=== PATIENT | female | born 1940 | race Caucasian/White ===

== ENCOUNTER 2022-01-08 20:51 | Observation (INO) | payer MEDICARE, SELFPAY ==
[2022-01-08 21:09] VITALS: BP 96/55; PULSE 87; RESP 18; TEMP 36.7; O2SAT 99; BMI 42.0
--- NOTE | 2022-01-08 21:09 | W.ED.GENADLT ---
HPI - General Adult General: Chief complaint: Weakness Stated complaint: NOT FEELING WELL Time Seen by Provider: 01/08/22 21:09 History of Present Illness: Ms. Hart is an 81-year-old lady with significant history of CHF (unsure of ejection fraction) presenting to the emergency department due to lightheadedness and hypotension. She describes onset of symptoms this morning without known specific provoking factor. Initially was mild with just a brain fog type feeling however is now increased to presyncope. She additionally endorses some difficulty with speech associated with this however this is improved as her blood pressure improved. EMS found the patient to have systolic blood pressure approximately 70. Denies infectious symptoms. Reports normal p.o. intake. She is on fluid restriction. Intensity symptoms is moderate to severe. Course has improved. No other specific changes in health, exacerbating, or alleviating factors identified. Onset (ago): hour(s) Severity: moderate Relieving factors: none Exacerbating factors: other Associated symptoms: Reports confusion and other Review of Systems General: Reports: 10 or more systems reviewed and unremarkable except in HPI and below Neuro: Reports: confusion [facility] PFSH: Medical History Atrial fibrillation CAD (coronary artery disease) CHF (congestive heart failure) Hypertension Physical Exam Const: COMMON NORMALS: alert GENERAL APPEARANCE: cooperative and well developed HENMT: COMMON NORMALS: normocephalic and atraumatic HEAD & SCALP: normocephalic and atraumatic Eye: COMMON NORMALS: conjunctivae normal CONJUNCTIVA: Yes conjunctivae normal SCLERA: sclerae normal Neck/C-Spine: COMMON NORMALS: supple GENERAL: Yes trachea midline Resp: COMMON NORMALS: clear to auscultation bilaterally EFFORT & INSPECTION: Yes able to speak in complete sentences AUSCULTATION: clear to auscultation bilaterally Cardio: COMMON NORMALS: regular rate and regular rhythm RATE: regular rate RHYTHM: regular rhythm GI: COMMON NORMALS: Soft to palpation PALPATION: Yes Soft to palpation and No Tenderness to palpation present (GI) PERCUSSION: normal to percussion Extremity: GENERAL: Yes normal exam except as noted and No edema Neuro: COMMON NORMALS: moves all extremities SENSORIUM/ORIENTATION: Yes alert and No Orientation impaired Psych: COMMON NORMALS: mental status grossly normal and Normal thought process present THOUGHT PROCESS: Normal thought process present Course Vital Signs: Vital signs: Vital Signs Temperature 97.6 F 01/09/22 08:00 Pulse Rate 72 01/09/22 12:35 Respiratory Rate 16 01/09/22 08:00 Blood Pressure 119/75 01/09/22 08:00 Pulse Oximetry 95 01/09/22 12:35 Oxygen Delivery Me thod 01/09/22 08:48 Oxygen Flow Rate 2 01/09/22 08:48 MDM - General Adult Medical Decision Making 81-year-old lady with complex history and limited available information presenting with hypotension and near syncope. EKG notable for atrial fibrillation with nonspecific ST segment abnormalities. No STEMI. Laboratory studies notable for mild leukocytosis, normal hemoglobin. Metabolic panel with hypomagnesemia, replenishment ordered. Negative delta troponin. BNP is elevated. No UTI. Viral studies negative. Head CT negative for acute intracranial pathology. Chest x-ray with evidence of pulmonary edema. Upon reassessment blood pressure mildly proved however patient presents next clinical picture of likely intra vascular volume depletion and distal volume overload. Reasonable to admit the patient for further observation given documented significant hypotension and symptomatic hypotension and history. The results of ED evaluation were discussed with the patient including plan for admission due to requirement for level of care not available if discharged to prevent significant worsening/deterioration. Patient agreeable with plan. Hospitalist service contacted and agreed to admit the patient. Medical Records I reviewed the patient's medical records. Lab Data I reviewed the patient's lab results. : 01/08/22 21:10 01/08/22 21:10 Radiology Impressions Chest X-Ray 01/08/22 21:10 IMPRESSION: Suggestion of mild pulmonary edema. Atypical infection can give a similar appearance. No consolidation. Suspected small pleural effusions. No large pleural effusion. No pneumothorax. Head CT 01/08/22 21:21 IMPRESSION: No evidence of acute intracranial hemorrhage, mass effect, or midline shift. Laboratory Results WBC 13.4 10^3/uL (4.0-10.0) H 01/08/22 21:10 RBC 3.86 10^6/uL (4.1-5.3) L 01/08/22 21:10 Hgb 11.9 g/dL (11.5-15.3) 01/08/22 21:10 Hct 37.3 % (37.0-47.0) 01/08/22 21:10 MCV 96.6 fl (81-99) 01/08/22 21:10 MCH 30.8 pg (28.0-34.0) 01/08/22 21:10 MCHC 31.9 g/dL (30.0-36.0) 01/08/22 21:10 RDW 14.5 % (12.1-15.1) 01/08/22 21:10 Plt Count 406 10^3/cmm (130-400) H 01/08/22 21:10 MPV 10.3 fL (7.4-10.4) 01/08/22 21:10 Neut % (Auto) 62.8 % 01/08/22 21:10 Lymph % (Auto) 25.8 % 01/08/22 21:10 [place] % (Auto) 8.1 % 01/08/22 21:10 Eos % (Auto) 2.0 % 01/08/22 21:10 Baso % (Auto) 0.6 % 01/08/22 21:10 Neut # (Auto) 8.41 10^3/uL (1.8-7.7) H 01/08/22 21:10 Lymph # (Auto) 3.5 10^3/uL (0.8-4.8) 01/08/22 21:10 [place] # (Auto) 1.1 10^3/uL (0.2-0.9) H 01/08/22 21:10 Eos # (Auto) 0.3 10^3/uL (0.0-0.8) 01/08/22 21:10 Baso # (Auto) 0.1 10^3/uL (0.0-0.1) 01/08/22 21:10 Nucleated RBC % (auto) 0 % 01/08/22 21:10 Nucleated RBCs # 0.0 /100WBC 01/08/22 21:10 Sodium 135 mmol/L (136-145) L 01/08/22 21:10 Potassium 4.0 mmol/L (3.5-5.1) 01/08/22 21:10 Chloride 101 mmol/L (98-107) 01/08/22 21:10 Carbon Dioxide 22 mmol/L (22-29) 01/08/22 21:10 Anion Gap 16.0 (5-19) 01/08/22 21:10 BUN 16 mg/dL (8-23) 01/08/22 21:10 Creatinine 0.9 mg/dL (0.5-0.9) 01/08/22 21:10 GFR Calculation Not Reportable 01/08/22 21:10 Glucose 120 mg/dL (65-115) H 01/08/22 21:10 Calculated Osmolality 282 mOsm/kg (285-295) L 01/08/22 21:10 Lactic Acid 2.0 mmol/L (0.5-2.2) 01/08/22 22:55 Calcium 9.7 mg/dL (8.5-10.5) 01/08/22 21:10 Magnesium 1.5 mg/dL (1.7-2.3) L 01/08/22 21:10 Total Bilirubin 0.5 mg/dL (0.15-1.2) 01/08/22 21:10 AST 25 U/L (0-32) 01/08/22 21:10 ALT 17 U/L (0-33) 01/08/22 21:10 Alkaline Phosphatase 73 U/L (35-105) 01/08/22 21:10 Troponin T Baseline 36 ng/L (0-10) H 01/08/22 21:10 Troponin T 120 Minute 33.02 ng/L (0-10) H 01/08/22 22:58 Delta Troponin T -2.98 ABS# (0-10) L 01/08/22 22:58 C-Reactive Protein 19.5 mg/L (0.0-4.9) H 01/08/22 21:10 NT-Pro-B Natriuret Pep 1162 pg/mL (0-450) H 01/08/22 21:10 Total Protein 6.6 g/dL (6.6-8.7) 01/08/22 21:10 Albumin 3.4 g/dL (3.5-5.2) L 01/08/22 21:10 Globulin 3.2 g/dL (1.3-4.6) 01/08/22 21:10 Procalcitonin 0.07 ng/mL (0-0.5) 01/08/22 21:10 TSH 0.25 uIU/mL (0.27-4.20) L 01/08/22 21:10 Free T4 1.53 ng/dL (0.82-1.77) 01/08/22 21:10 Urine Color Yellow (Yellow) 01/08/22 22:24 Urine Appearance Clear (CLEAR) 01/08/22 22:24 Urine pH 7 (5-7) 01/08/22 22:24 Ur Specific [place] 1.010 (1.005-1.030) 01/08/22 22:24 Urine Protein Neg (Negative) 01/08/22 22:24 Urine Glucose (UA) Norm (Normal) 01/08/22 22:24 Urine Ketones Negative (Negative) 01/08/22 22:24 Urine Blood Neg (Negative) 01/08/22 22:24 Urine Nitrate Negative (Negative) 01/08/22 22:24 Urine Bilirubin Neg (Negative) 01/08/22 22:24 Urine Urobilinogen Neg mg/dL (Negative) 01/08/22 22:24 Ur Leukocyte Esterase Negative (Negative) 01/08/22 22:24 Coronavirus 229E (PCR) Not detected (NOT DETECT) 01/08/22 22:20 SARS-CoV-2 (PCR) Not detected (NOT DETECT) 01/08/22 22:20 Discharge Plan Discharge Patient Disposition: Placed in Observation Admit Provider: Kraen Su Clinical Impression: Acute exacerbation of CHF (congestive heart failure), Pulmonary edema, Hypoxia Discharge Diet: Cardiac Discharge Activity: Increase activity as tolerated Coding Level of Care Code ED Track Laborer for Chg Fwd Exam Comprehensive
--- NOTE | 2022-01-08 21:10 | XRR_ITS ---
PROCEDURE INFORMATION: Exam: XR Chest Exam date and time: 01/08/2022 9:57 PM Age: 81 years old Clinical indication: Other: Hypotensive; Additional info: Hypotension TECHNIQUE: Imaging protocol: Radiologic exam of the chest. Views: 1 view. COMPARISON: No relevant prior studies available. FINDINGS: Lungs: Low lung volumes and bronchovascular crowding. Slight increased pulmonary vascularity. Increased interstitial markings. Pleural spaces: The costophrenic angles are obscured suspecting small pleural effusions, more prominent on the right. No pneumothorax. Heart/Mediastinum: The cardiomediastinal silhouette is enlarged. Bones/joints: There are degenerative changes of the spine and shoulder joints. XR/XR chest 1V portable [id number] IMPRESSION: Suggestion of mild pulmonary edema. Atypical infection can give a similar appearance. No consolidation. Suspected small pleural effusions. No large pleural effusion. No pneumothorax.
--- NOTE | 2022-01-08 21:10 | ECG_ITS ---
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 Measurements Intervals [place] Rate: 78 P: IN: QRS: -41 QRSD: 90 T: 31 QT: 390 QTc: 445 Interpretive Statements ATRIAL FIBRILLATION LEFT AXIS DEVIATION [QRS AXIS < -30] No previous ECG available for comparison Electronically Signed On 01-10-2022 22:59:23 CDT by Tiff Wolf M.D. [id number]
[2022-01-08 21:21] LABS: Basophils # 0.1 10^3/uL (0.0-0.1); Basophils % 0.6 %; Eosinophils # 0.3 10^3/uL (0.0-0.8); Hematocrit 37.3 % (37.0-47.0); Hemoglobin 11.9 g/dL (11.5-15.3); Lymphocytes # 3.5 10^3/uL (0.8-4.8); Lymphocytes % 25.8 %; Mean Corpuscular HGB Conc 31.9 g/dL (30.0-36.0); Mean Corpuscular Hemoglobin 30.8 pg (28.0-34.0); Mean Corpuscular Volume 96.6 fl (81-99); Mean Platelet Volume 10.3 fL (7.4-10.4); Monocytes # 1.1 10^3/uL (0.2-0.9); Monocytes % 8.1 %; Neutrophils # 8.41 10^3/uL (1.8-7.7); Neutrophils % 62.8 %; Nucleated Red Blood Cells % 0 %; Platelet Count 406 10^3/cmm (130-400); Red Blood Count 3.86 10^6/uL (4.1-5.3); Red Cell Distribution Width 14.5 % (12.1-15.1); White Blood Count 13.4 10^3/uL (4.0-10.0)
--- NOTE | 2022-01-08 21:21 | CTR_ITS ---
PROCEDURE INFORMATION: Exam: CT Head Without Contrast Exam date and time: 01/08/2022 9:43 PM Age: 81 years old Clinical indication: Other: Lightheadedness TECHNIQUE: Imaging protocol: Computed tomography of the head without contrast. Radiation optimization: All CT scans at this facility use at least one of these dose optimization techniques: automated exposure control; mA and/or kV adjustment per patient size (includes targeted exams where dose is matched to clinical indication); or iterative reconstruction. COMPARISON: No relevant prior studies available. RADIATION DOSE METRICS: Total DLP (mGy-cm): 1002.18 FINDINGS: Brain: No evidence of acute intracranial hemorrhage. The lopes-white matter differentiation is maintained. Periventricular and subcortical hypoattenuation are nonspecific however likely the sequela of chronic small vessel ischemic disease. No significant mass effect or midline shift. Cerebral ventricles: Mild cerebral and cerebellar volume loss and ex vacuo dilation of the ventricles. Pituitary gland and sella: There is a partial empty sella. Paranasal sinuses: Mild paranasal sinus disease. Mastoid air cells: The imaged mastoid air cells appear grossly clear. Orbital cavities: No evidence of acute CT findings in the orbits. Bones/joints: Unremarkable. No acute fracture. Soft tissues: Unremarkable. Vasculature: There are atherosclerotic calcifications of the carotid siphons and the V4 segments of the vertebral arteries, more on the left side. CT/CT head wo con* [id number] IMPRESSION: No evidence of acute intracranial hemorrhage, mass effect, or midline shift.
[2022-01-08 21:47] LABS: Troponin(5th) Baseline 36 ng/L (0-10)
[2022-01-08 21:54] LABS: NT Pro B Type Natriuretic Pept 1162 pg/mL (0-450); Procalcitonin 0.07 ng/mL (0-0.5); Thyroid Stimulating Hormone 0.25 uIU/mL (0.27-4.20)
[2022-01-08 22:03] VITALS: BP 107/84; PULSE 85; RESP 25; O2SAT 100
[2022-01-08 22:05] LABS: Albumin Level 3.4 g/dL (3.5-5.2); Alkaline Phosphatase 73 U/L (35-105); Blood Urea Nitrogen 16 mg/dL (8-23); C Reactive Protein 19.5 mg/L (0.0-4.9); Calcium 9.7 mg/dL (8.5-10.5); Carbon Dioxide 22 mmol/L (22-29); Chloride 101 mmol/L (98-107); Globulin 3.2 g/dL (1.3-4.6); Glucose 120 mg/dL (65-115); Magnesium 1.5 mg/dL (1.7-2.3); Osmolality Calculated 282 mOsm/kg (285-295); Sodium 135 mmol/L (136-145); Total Bilirubin 0.5 mg/dL (0.15-1.2); Total Protein 6.6 g/dL (6.6-8.7)
[2022-01-08 22:15] VITALS: BP 107/71; PULSE 75; RESP 23; O2SAT 99
[2022-01-08 22:24] LABS: Alanine Aminotransferase 17 U/L (0-33)
[2022-01-08 22:29] LABS: Aspartate Amino Transferase 25 U/L (0-32)
--- NOTE | 2022-01-08 22:30 | P.HP_ITS ---
Providers/Chief Complaint Admitting Physician: Karen Su MD Chief Complaint: NOT FEELING WELL History of Present Illness Kim Hart is a 81 year old female with a past medical history of coronary artery disease, last cardiac stenting in December 2020, A. fib on warfarin, last INR 2.41-week ago, CHF, takes Lasix 20 mg p.o. every day, hypertension on several blood pressure medications, however the list of her medications is not currently available for review. Patient presented to the emergency room with a generalized feeling of being unwell. She stated feeling lightheaded at around 7 PM last evening. She was sitting in a chair when the symptoms started. She did not pass out. She estimates that symptoms lasted about 2 to 3 minutes. She has a past history of stroke in the from which she had some residual left-sided facial droop. She did not have any focal neurodeficits. No history of seizures. No recent history of bleeding at any site. Hemoglobin is stable today at 11.9. She denies any complaints of chest pain dyspnea or palpitations prior to onset of this episode. She was not hypoglycemic at the time. Her brother called EMS, upon arrival they found her systolic blood pressure to be 70. Upon presentation to the ER her blood pressure continued to be soft in the 80-90 systolic range, she received 1 L IV fluid bolus after which blood pressure is 120/81 at the time of my assessment. She denies any recent changes in her medications. She is quite fixated on the fact that her symptoms are related to change in her medical marijuana. She is visiting here from [place] and was on a different preparation in [place]. Recently 1 week ago she got some CBD Gummies which she states did not work as well as the medical marijuana and states that her symptoms are related to this. Review of systems negative for chest pain dyspnea palpitation syncope abdominal pain nausea vomiting diarrhea fever or chills. Review of Systems General: Reports: 10 or more systems reviewed and unremarkable except in HPI and below Const: Denies: fever(s), chills or body aches Eyes: Denies: change in vision, blurry vision or photophobia ENMT: Reports: hoarseness; Denies: throat pain, enlarged tonsils, odynophagia or nasal congestion Card: Denies: chest pain, palpitations, irregular heart rhythm, edema, swelling of feet/ankles, lightheadedness, pre-syncope, dyspnea on exertion or orthopnea Resp: Denies: dyspnea, productive cough, non-productive cough, wheezing, stridor, pain on inspiration, change in phlegm color, hemoptysis or chest congestion GI: Denies: abdominal pain, nausea, vomiting, hematemesis, coffee ground emesis, dysphagia, heartburn, diarrhea, constipation, GI cramping, change in stool character, hematochezia or melena : Denies: flank pain, difficulty voiding, dysuria, urinary frequency, urinary urgency, urinary hesitancy or hematuria Musc: Denies: neck pain, back pain, extremity pain, joint swelling, joint warmth or deformity Neuro: Denies: headache(s), numbness in extremities, weakness in extremities, sensory changes, difficulty walking, frequent falls, dizziness, vertigo, behavioral changes, Slurred speech present or seizure-like activity Psych: Denies: anxiety, depression, suicidal ideation or homicidal ideation Endo: Denies: polyuria, polydipsia, tired all the time, cold intolerance or hot flashes Matias/Lymph: Denies: easy bruising or easy bleeding Medications/Allergies Allergies Allergy/AdvReac Type Severity Reaction Status Date / Time No Known Allergies Allergy Verified 01/09/22 04:10 PFSH Acute PFSH: Medical History Atrial fibrillation CAD (coronary artery disease) CHF (congestive heart failure) Hypertension Vitals/I&O/Wt Last Vital Signs Temp 98.0 F 01/08/22 21:09 Pulse 75 01/09/22 01:19 Resp 23 H 01/09/22 01:19 BP 107/71 01/09/22 01:19 Pulse Ox 99 01/09/22 01:19 O2 Del Method 01/09/22 02:00 01/08/22 01/09/22 01/09/22 22:59 06:59 14:59 Intake Total 290 / 290 Balance 290 / 290 Weight last 48 hrs Weight 98.248 kg Weight 94.347 kg Physical Exam Narrative: General: No acute distress, AO x3 HEENT: PERRLA, pupils bilaterally equal and reactive, pallors not present Chest: Normal vesicular breath sounds, no added sounds, equal good air entry bilaterally CVS: S1-S2 regular, no murmurs, no tachycardia, no gallops, no rubs Abdomen: Soft, nontender, no organomegaly, bowel sounds present Neuro: No focal deficits, no facial deformity, AO x3, power 5/5 in all limbs Extremities: No edema clubbing or cyanosis Data : 01/08/22 21:10 01/08/22 21:10 Micro: Microbiology 01/08/22 22:55 Blood Culture - Preliminary Blood SPECIMEN COLLECTED 01/08/22 22:58 Blood Culture - Preliminary Blood SPECIMEN COLLECTED A&P Assessment and plan (1) Lightheadedness: (2) Hypoxia: (3) Elevated troponin: Plan Patient presenting to the emergency room today with chief complaints of ligh theadedness which was brought on quite suddenly. She did not lose consciousness. No preceding symptoms of chest pain dyspnea palpitations or syncope. She has no current neurological deficits. Low probability of CVA versus TIA CT head without evidence of acute intracranial hemorrhage mass-effect or midline shift. Sequelae of old small vessel ischemic disease correlating with patient's history of CVA. Upon EMS arrival reported blood pressure was 70 systolic, thereafter in the emergency room also noted to be between 80-90 range. After receiving 1 L of IV fluid bolus this is improved. At the time of my assessment blood pressure is ranging between 100-1 20 systolic. Patient does not feel any symptoms anymore. Will check orthostatics EKG without any acute ST-T wave changes. Noted to have A. fib with heart rate of 71 bpm. Mildly elevated troponin at 31 pending 2 and 6-hour trend. She is noted to have a new oxygen requirement of 2 L/min with chest x-ray showing bilateral infiltrates, however clinically she is appearing to be euvolemic. She states that she sleeps upright in a chair for many years, unknown if she has a history of DOMENIC or if this is more from CHF. Patient states that last week she was noted to have low oxygen numbers at her PCPs visit, however they performed a walk test and patient did not qualify for supplemental oxygen. We will perform a home O2 evaluation today prior to discharge. Overall patient symptoms appear related to her transient hypotensive episode, though I am uncertain as to what caused her hypotension in the first place. She does not describe any volume loss by way of diarrhea nausea or vomiting. She takes Lasix 20 mg daily, has been stable over several years. She denies any recent changes in her diuretic dosing. Her drug list is not available for me to review to assess her other antihypertensive and diuretic regimen. Once this is available, we will assess if any further dose adjustments can be made. Attestations Medical Necessity Statement*: Observation admission, for troponin trend, orthostatic blood pressure check, home O2 eval, anticipate discharge in the upcoming 24 hours Coding Level of Care Code Acute Match Up Person for [facility] Fwd Diagnoses Lightheadedness R42 Hypoxia R09.02 Elevated troponin R77.8
[2022-01-08 22:33] LABS: Add Urine Microscopic? NO; Charge for UA Resulting for Rev
[2022-01-08 22:34] LABS: Bilirubin Urine Neg (Negative); Blood Urine Neg (Negative); Glucose Urine UA Norm (Normal); Ketones Urine Negative (Negative); Leukocyte Esterase Urine Negative (Negative); Nitrate Urine Negative (Negative); Protein Urine Neg (Negative); Urine Appearance Clear (CLEAR); Urine Color Yellow (Yellow); Urobilinogen Urine Neg (Negative); pH Urine 7 (5-7)
[2022-01-08 22:35] LABS: Free T4 Free Thyroxine 1.53 ng/dL (0.82-1.77)
[2022-01-08 22:37] VITALS: BP 120/81; BP 124/86; BP 138/74; PULSE 105; PULSE 80; PULSE 90
[2022-01-08] MEDS: magnesium sulfate premix 2 GM/50 ML PIGGYBACK IV (22:47)
--- NOTE | 2022-01-08 23:10 | ECG_ITS ---
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 Measurements Intervals [place] Rate: 71 P: [place]: QRS: -32 QRSD: 90 T: 14 QT: 384 QTc: 419 Interpretive Statements ATRIAL FIBRILLATION LEFT AXIS DEVIATION [QRS AXIS < -30] POSSIBLE RIGHT VENTRICULAR CONDUCTION DELAY [RSR (QR) IN V1/V2] NONSPECIFIC T-WAVE ABNORMALITY No previous ECG available for comparison Electronically Signed On 01-10-2022 23:12:33 CDT by Tiff Wolf M.D. [id number]
[2022-01-08 23:38] LABS: Troponin 5 2HR 33.02 ng/L (0-10)
[2022-01-08 23:44] LABS: Troponin 5 2HR Delta -2.98 ABS# (0-10)
[2022-01-09 00:18] LABS: Adenovirus Not Detected (NOT DETECT); Chlamydia Pneumoniae Not Detected (NOT DETECT); Coronavirus 229E,HKU1,NL63,OC4 Not Detected (NOT DETECT); Human Metapneumovirus Not Detected (NOT DETECT); Human Rhinovirus/Enterovirus Not Detected (NOT DETECT); Influenza A Not Detected (NOT DETECT); Influenza A H1 Not Detected (NOT DETECT); Influenza A H1-2009 Not Detected (NOT DETECT); Influenza A H3 Not Detected (NOT DETECT); Influenza B Not Detected (NOT DETECT); Mycoplasma Pneumoniae Not Detected (NOT DETECT); Parainfluenza Virus Type 1 Not Detected (NOT DETECT); Parainfluenza Virus Type 2 Not Detected (NOT DETECT); Parainfluenza Virus Type 3 Not Detected (NOT DETECT); Parainfluenza Virus Type 4 Not Detected (NOT DETECT); Respiratory Syncytial Virus A Not Detected (NOT DETECT); Respiratory Syncytial Virus B Not Detected (NOT DETECT); SARS-COV-2 Not Detected (NOT DETECT)
[2022-01-09 01:19] VITALS: BP 107/71; PULSE 75; RESP 23; O2SAT 99
[2022-01-09 05:08] LABS: Troponin 5 6HR 35.13 ng/L (0-10)
[2022-01-09 05:09] LABS: Troponin 5 6HR Delta -0.87 ng/L (0-12)
--- NOTE | 2022-01-09 07:10 | PC.NURSE ---
Bedside report completed with BUSHRA Majano
[2022-01-09 08:00] VITALS: BP 119/75; PULSE 57; RESP 16; TEMP 36.4; O2SAT 99
[2022-01-09 08:48] VITALS: PULSE 72; O2SAT 95
[2022-01-09 08:49] VITALS: O2SAT 95; O2SAT 99
[2022-01-09] MEDS: pantoprazole DR 40 mg Tablet PO (09:08)
[2022-01-09 09:09] LABS: INR 1.91 (0.8-1.2)
--- NOTE | 2022-01-09 09:10 | PM.DCS ---
Discharge Providers Date of Admission: 01/09/22 00:00 Date of Discharge: January 09, 2022 Attending Provider at Admission: Karen Su MD Attending Provider at Discharge: Patricia Chow MD Diagnoses at Discharge Discharge Diagnosis (1) Lightheadedness: Status: Acute (2) Hypoxia: Status: Acute (3) Elevated troponin: Status: Acute Reason for Visit Reason for Visit: NOT FEELING WELL Hospital Course Hospital Course 82-year-old female who was admitted for management of lightheadedness, dizziness, she was diagnosed with dehydration related hypotension improved significantly with IV fluid hydration. Patient is awake and alert at the time of discharge, nonfocal neuro exam No signs of dizziness, she is able to walk using a walker She does have chronic back pain for which she is medical marijuana. She does have a murmur on clinical exam stating that she has an echo which has been ordered for her back in [place] she would like to get echo there instead of in the hospital while she is admitted. She is motivated and eager to return home. Her blood pressure has stabilized, I did make her walk in the room, there was no dizziness Orthostasis negative. Patient is stating that she has history of A. fib and takes Eliquis along with her medications. She does not want us to change anything medication and wanted to go back to [place] to follow-up with her PCP. Patient is stating that she has been taking medications for years and she has not changed anything and she would like to keep things the way they are and not willing to change any of her pills for today Her oxygen requirement is , Chest x-ray consistent with mild pulm edema, she will continue her Lasix 20 mg daily, will do home O2 evaluation before discharge Physical Exam Narrative: Variable S1-S2 No signs of RVR Clinically looks euvolemic Blood pressure 119/75-minute edwar Nonfocal neuro exam Able to walk using walker No signs of stroke Pleasant and cooperative during my evaluation Discharge Data Studies Completed and Pending Completed Studies During Hospitalization Category Date Time Status CT head wo con* [id number] Stat Cat Scan 01/08/22 21:21 Completed XR chest 1V portable [id number] Stat Exams 01/08/22 21:10 Completed Pending at discharge Category Date Time Status Blood Culture Stat Lab 01/08/22 22:55 Results Radiology Impressions Chest X-Ray 01/08/22 21:10 IMPRESSION: Suggestion of mild pulmonary edema. Atypical infection can give a similar appearance. No consolidation. Suspected small pleural effusions. No large pleural effusion. No pneumothorax. Head CT 01/08/22 21:21 IMPRESSION: No evidence of acute intracranial hemorrhage, mass effect, or midline shift. Laboratory Results WBC 13.4 10^3/uL (4.0-10.0) H 01/08/22 21:10 RBC 3.86 10^6/uL (4.1-5.3) L 01/08/22 21:10 Hgb 11.9 g/dL (11.5-15.3) 01/08/22 21:10 Hct 37.3 % (37.0-47.0) 01/08/22 21:10 MCV 96.6 fl (81-99) 01/08/22 21:10 MCH 30.8 pg (28.0-34.0) 01/08/22 21:10 MCHC 31.9 g/dL (30.0-36.0) 01/08/22 21:10 RDW 14.5 % (12.1-15.1) 01/08/22 21:10 Plt Count 406 10^3/cmm (130-400) H 01/08/22 21:10 MPV 10.3 fL (7.4-10.4) 01/08/22 21:10 Neut % (Auto) 62.8 % 01/08/22 21:10 Lymph % (Auto) 25.8 % 01/08/22 21:10 [place] % (Auto) 8.1 % 01/08/22 21:10 Eos % (Auto) 2.0 % 01/08/22 21:10 Baso % (Auto) 0.6 % 01/08/22 21:10 Neut # (Auto) 8.41 10^3/uL (1.8-7.7) H 01/08/22 21:10 Lymph # (Auto) 3.5 10^3/uL (0.8-4.8) 01/08/22 21:10 [place] # (Auto) 1.1 10^3/uL (0.2-0.9) H 01/08/22 21:10 Eos # (Auto) 0.3 10^3/uL (0.0-0.8) 01/08/22 21:10 Baso # (Auto) 0.1 10^3/uL (0.0-0.1) 01/08/22 21:10 Nucleated RBC % (auto) 0 % 01/08/22 21:10 Nucleated RBCs # 0.0 /100WBC 01/08/22 21:10 PT 22.20 SECONDS (12.1-14.9) H 01/09/22 08:27 INR 1.91 (0.8-1.2) H 01/09/22 08:27 Sodium 135 mmol/L (136-145) L 01/08/22 21:10 Potassium 4.0 mmol/L (3.5-5.1) 01/08/22 21:10 Chloride 101 mmol/L (98-107) 01/08/22 21:10 Carbon Dioxide 22 mmol/L (22-29) 01/08/22 21:10 Anion Gap 16.0 (5-19) 01/08/22 21:10 BUN 16 mg/dL (8-23) 01/08/22 21:10 Creatinine 0.9 mg/dL (0.5-0.9) 01/08/22 21:10 GFR Calculation Not Reportable 01/08/22 21:10 Glucose 120 mg/dL (65-115) H 01/08/22 21:10 Calculated Osmolality 282 mOsm/kg (285-295) L 01/08/22 21:10 Lactic Acid 2.0 mmol/L (0.5-2.2) 01/08/22 22:55 Calcium 9.7 mg/dL (8.5-10.5) 01/08/22 21:10 Magnesium 1.5 mg/dL (1.7-2.3) L 01/08/22 21:10 Total Bilirubin 0.5 mg/dL (0.15-1.2) 01/08/22 21:10 AST 25 U/L (0-32) 01/08/22 21:10 ALT 17 U/L (0-33) 01/08/22 21:10 Alkaline Phosphatase 73 U/L (35-105) 01/08/22 21:10 Troponin T Baseline 36 ng/L (0-10) H 01/08/22 21:10 Troponin T 120 Minute 33.02 ng/L (0-10) H 01/08/22 22:58 Delta Troponin T -2.98 ABS# (0-10) L 01/08/22 22:58 Troponin T Hi Sens 6Hr 35.13 ng/L (0-10) H 01/09/22 03:45 Troponin T Hi Sens 6Hr Delta -0.87 ng/L (0-12) L 01/09/22 03:45 C-Reactive Protein 19.5 mg/L (0.0-4.9) H 01/08/22 21:10 NT-Pro-B Natriuret Pep 1162 pg/mL (0-450) H 01/08/22 21:10 Total Protein 6.6 g/dL (6.6-8.7) 01/08/22 21:10 Albumin 3.4 g/dL (3.5-5.2) L 01/08/22 21:10 Globulin 3.2 g/dL (1.3-4.6) 01/08/22 21:10 Procalcitonin 0.07 ng/mL (0-0.5) 01/08/22 21:10 TSH 0.25 uIU/mL (0.27-4.20) L 01/08/22 21:10 Free T4 1.53 ng/dL (0.82-1.77) 01/08/22 21:10 Urine Color Yellow (Yellow) 01/08/22 22:24 Urine Appearance Clear (CLEAR) 01/08/22 22:24 Urine pH 7 (5-7) 01/08/22 22:24 Ur Specific [place] 1.010 (1.005-1.030) 01/08/22 22:24 Urine Protein Neg (Negative) 01/08/22 22:24 Urine Glucose (UA) Norm (Normal) 01/08/22 22:24 Urine Ketones Negative (Negative) 01/08/22 22:24 Urine Blood Neg (Negative) 01/08/22 22:24 Urine Nitrate Negative (Negative) 01/08/22 22:24 Urine Bilirubin Neg (Negative) 01/08/22 22:24 Urine Urobilinogen Neg mg/dL (Negative) 01/08/22 22:24 Ur Leukocyte Esterase Negative (Negative) 01/08/22 22:24 Coronavirus 229E (PCR) Not detected (NOT DETECT) 01/08/22 22:20 SARS-CoV-2 (PCR) Not detected (NOT DETECT) 01/08/22 22:20 Vitals Last Vital Signs Temp 97.6 F 01/09/22 08:00 Pulse 72 01/09/22 08:48 Resp 16 01/09/22 08:00 BP 119/75 01/09/22 08:00 Pulse Ox 95 01/09/22 08:49 O2 Del Method 01/09/22 08:48 O2 Flow Rate 2 01/09/22 08:48 Discharge Plan Discharge Patient Disposition: Home Condition: Stable Prescriptions: New albuterol sulfate 90 mcg/actuation HFA aerosol inhaler 2 inh inhalation Q8H PRN (Reason: shortness of breath or wheezing) Qty: 8.5 0RF Discharge Orders: Discharge Order (Routine); Ordered 01/09/22 Ordered By: Patricia Chow Discharge Diet: Cardiac Discharge Activity: Increase activity as tolerated Patient Instructions: Albuterol (By breathing), Heart Failure (ED), Pulmonary Edema (ED), CHF Stoplight, Opioid Safety Discharge Attestations Time Spent in Discharge Care*: less than 30 min Quality Metrics Clinical Quality Measures [ No reported AMI, CVA or VTE this stay] Coding Level of Care Code Acute Chg FW DC note Diagnoses Lightheadedness R42 Hypoxia R09.02 Elevated troponin R77.8
--- NOTE | 2022-01-09 12:10 | PC.NURSE ---
Discharge instructions provided and discussed. Medication to continue , to change and to stop, in addition to new medication albuterol inhaler discussed. CHF stoplight provided and discussed. Care notes for Albuterol Inhaler, Pulmonary edema, CHF and lightheadedness provided < Pt stated she would read these at home.. Pt verbalized understanding to all discussed. Pt stated she would call her [facility] physician who is in [place] tomorrow. Pt discharged.
[2022-01-09 12:35] VITALS: PULSE 72; O2SAT 95
== END 2022-01-09 13:10 | disposition home or self-care (01) ==
LOC: ER 23:59 → MEDSURG 01-09 04:35
PROVIDERS: Admitting Provider Student in an Organized Health Care Education/Training Program; Emergency Provider Emergency Medicine; Visit Provider Internal Medicine
DX: R42 Dizziness and giddiness (principal); R09.02 Hypoxemia; R77.8 Other specified abnormalities of plasma proteins; I48.91 Unspecified atrial fibrillation; Z79.01 Long term (current) use of anticoagulants; Z95.5 Presence of coronary angioplasty implant and graft; I25.10 Atherosclerotic heart disease of native coronary artery without angina pectoris; I11.0 Hypertensive heart disease with heart failure; I50.9 Heart failure, unspecified
CPT/HCPCS: 36415; 70450; 71045; 80053; 81003; 83605; 83735; 83880; 84145; 84439; 84443; 84484; 85025; 85610; 86140; 87040; 87635; 93005; 94760; 96365; 99285; G0378; J3475